=== PATIENT | male | born 1940 | race Caucasian/White ===

== ENCOUNTER → 2018-10-27 | Outpatient (CLI) | payer MEDICARE | END | disposition home or self-care (01) | LOC: PCVCCLINIC 10:18 | PROVIDERS: ATTEND Internal Medicine | DX: R93.1 Abnormal findings on diagnostic imaging of heart and coronary circulation (principal); I49.3 Ventricular premature depolarization; I10 Essential (primary) hypertension; E11.9 Type 2 diabetes mellitus without complications; I70.90 Unspecified atherosclerosis | CPT/HCPCS: 36415; 80061; 93005; G0463 ==

== ENCOUNTER → 2018-11-01 | Outpatient (CLI) | payer MEDICARE ==
--- NOTE | 2018-11-01 10:58 | PCVCIMAG ---
APPROVED REPORT Study performed: 11/01/2018 10:09:06 EXAM: Comprehensive 2D, Doppler, and color-flow Echocardiogram Patient Location: Echo lab Status: routine BSA: 1.98 HR: 60 bpmBP: 130/68 mmHg Rhythm: NSR Other Information Study Quality: Good Indications Diabetes Hypertension/HDD Elevated calcium score. PVC's 2D Dimensions IVSd: 8.83 (7-11mm)LVOT Diam: 20.92 (18-24mm) LVDd: 41.55 mm PWd: 9.36 (7-11mm)Ascending Ao: 34.61 (22-36mm) LVDs: 31.83 (25-40mm) Left Atrium: 40.65 (27-40mm) Aortic Root: 31.55 mm LV Single Plane 4CH: 58.15 % LV Single Plane 2CH: 69.33 % Biplane EF: 63.2 % Volumes Left Atrial Volume (Systole) Single Plane 4CH: 67.55 mLSingle Plane 2CH: 41.91 mL LA ESV Index: 32.00 mL/m2 Aortic Valve AoV Peak Maxx.: 1.41 m/s AO Peak Gr.: 7.90 mmHgLVOT Max P.33 mmHg LVOT Max V: 1.15 m/s JAZZ Vmax: 2.82 cm2 Mitral Valve E/A Ratio: 25.0 MV Decel. Time: 247.79 ms MV E Max Maxx.: 0.75 m/s MV A Maxx.: 0.03 m/s IVRT: 124.57 ms TDI E/Lateral E': 7.50E/Medial E': 12.50 Medial E' Maxx.: 0.06 m/s Lateral E' Maxx.: 0.10 m/s Pulmonary Vein P Vein S: 0.57 m/sP Vein A: 0.37 m/s P Vein D: 0.52 m/sP Vein A Dur.: 86.5 msec P Vein S/D Ratio: 1.10 Tricuspid Valve TR Peak Maxx.: 2.42 m/s TR Peak Gr.: 23.51 mmHg Left Ventricle The left ventricle is normal size. There is normal LV segmental wall motion. There is normal left ventricular wall thickness. Left ventricular systolic function is normal. The left ventricular ejection fraction is within the normal range. LVEF is 60-65%. The left ventricular diastolic function is normal. Right Ventricle The right ventricle is normal size. The right ventricular systolic function is normal. Atria The left atrium size is normal. The right atrium size is normal. Aortic Valve The aortic valve is normal in structure. No aortic regurgitation is present. There is no aortic valvular stenosis. Mitral Valve The mitral valve is normal in structure. Mild mitral regurgitation. No evidence of mitral valve stenosis. Tricuspid Valve The tricuspid valve is normal in structure. Trace tricuspid regurgitation. Pulmonary artery pressure is 30mmHg. Pulmonic Valve The pulmonary valve is normal in structure. There is no pulmonic valvular regurgitation. Great Vessels The aortic root is normal in size. IVC is normal in size and collapses >50% with inspiration. Pericardium There is no pericardial effusion. <Conclusion> The left ventricle is normal size. LVEF is 60-65%. The aortic valve is normal in structure. The mitral valve is normal in structure. Mild mitral regurgitation. The tricuspid valve is normal in structure. Trace tricuspid regurgitation. Pulmonary artery pressure is 30mmHg. The pulmonary valve is normal in structure. There is no pericardial effusion.
--- NOTE | 2018-11-01 12:16 | PCVCIMAG ---
APPROVED REPORT Indications Bruit Doppler Spectral Velocity Analysis PSV / EDVPSV / EDV ECA (R) 99 / 8 cm/sECA (L) 73 / 10 cm/s dICA (R) 78 / 22 cm/sdICA (L) 59 / 17 cm/s Conrad (R) 72 / 19 cm/smICA (L) 73 / 23 cm/s pICA (R) 86 / 16 cm/spICA (L) 70 / 19 cm/s Bulb (R) 68 / 16 cm/sBulb (L) 47 / 9 cm/s dCCA (R) 73 / 17 cm/sdCCA (L) 91 / 21 cm/s mCCA (R) 82 / 18 cm/smCCA (L) 90 / 19 cm/s Vert (R) 43 / 13 cm/sVert (L) 51 / 14 cm/s ICA/CCA 0.80 ICA/CCA 1.05 Basic Measurements Blood Pressure: Pulses: Right Left RightLeft Brachial(Sitting) 140/[id number]/80mmHgTemporal Real Time B-Mode Imaging Vert. (R)AntegradeVert. (L)Antegrade Findings The right carotid bulb has moderate calcified plaque. The right proximal internal carotid artery shows <40% stenosis. The right common carotid artery shows no significant stenosis. The right external carotid artery shows no significant stenosis. The left carotid bulb has mild calcified plaque. The left proximal internal carotid artery shows <40% stenosis. The left common carotid artery shows no significant stenosis. The left external carotid artery shows no significant stenosis. Conclusion 1. Right internal carotid artery stenosis (<40%) 2. Left internal carotid artery stenosis (<40%) 3. Antegrade vertebral flow
== END | disposition home or self-care (01) ==
LOC: PCVCIMAG 09:54
PROVIDERS: ATTEND Internal Medicine
DX: I65.23 Occlusion and stenosis of bilateral carotid arteries (principal); R09.89 Other specified symptoms and signs involving the circulatory and respiratory systems; I70.90 Unspecified atherosclerosis; E11.9 Type 2 diabetes mellitus without complications; I10 Essential (primary) hypertension; R93.1 Abnormal findings on diagnostic imaging of heart and coronary circulation; I49.3 Ventricular premature depolarization
CPT/HCPCS: 93306; 93880

== ENCOUNTER → 2018-11-21 | Outpatient (CLI) | payer MEDICARE ==
[~2018-11-21] MED LIST: REGADENOSON 0.4 MG/5 ML DISP.SYRIN. IV ONE
--- NOTE | 2018-11-21 11:51 | PCVCIMAG ---
APPROVED REPORT Imaging Protocol: Rest Tc-99m/Stress Tc-99m 1 day Study performed: 11/21/2018 09:12:09 Indication: Irregular Heart Beat Patient Location: Out-Patient Stress Nurse: Candice Tobias RN, Beulah Poon RN [facility] Tech:Amarilis Machadomaryam [facility] Ht: 5 ft 9 in Wt: 180 lbs BSA: 1.98 m2 HR: 73 bpm BP: 188/83 mmHg BMI: 26.57 Rhythm: Sinus Rhythm Medical History Medical History: Diabetes, High Ca Score Medications: Atenolol, Protonix, Zantac, Jardiance Allergies: No known drug allergies Cardiac Risk Factors: Age Pretest Chest Pain Characteristics: No chest pain Exercise History: Physically active Resting Data Rest SPECT myocardial perfusion imaging was performed in supine position 45 minutes following the intravenous injection of 10 mCi of Tc-99m Sestamibi. Time of rest injection: 0900 Date: 11/21/2018 Administration Route: IV Administration Site: Right AC Pharmacologic Stress Pharmacologic stress test was performed by injecting Regadenoson 0.4 mg IV push over 10-15 seconds immediately followed by the intravenous injection of 31.9 mCi of Tc-99m Sestamibi. Time of stress injection: 1010 Date: 11/21/2018 Administration Route: IV Administration Site: Right AC Gated Stress SPECT was performed 45 minutes after stress injection. The images were gated to evaluate regional wall motion and calculate left ventricular ejection fraction. Stress Test Details Stress Test: Pharmacologic stress was paired with low level exercise. Reason for pharmacologic stress test: Arrhythmias. HRMax Heart Rate (APMHR): 145 bpm Resting HR: 73 bpmTarget HR (85% APMHR): 123 bpm Max HR Achieved: 113 bpm % of APMHR: 77 Recovery HR: 85 bpm BP Resting BP: 188/83 mmHg Max BP: 142/80 mmHg Recovery BP: 152/59 mmHg ECG Resting ECG: Sinus Rhythm Stress ECG: Sinus Tachycardia Arrhythmia: PVC's Recovery ECG: Sinus Rhythm Clinical Reason for Termination: Completed protocol Stress Symptoms: Dyspnea, Leg Fatigue Exercise duration: 4 min 00 sec Exercise capacity: 1.6 METs Symptoms resolved with caffeine. Stress ECG Conclusion 1. Adequate response to intravenous Lexiscan 2. Inadequate heart rate for ECG diagnosis Study Data Post stress, the left ventricular ejection was 57%.. SSS: 3 SRS: 1 SDS: 3 TID = 0.78. Perfusion There is a large area of moderately reduced uptake in the entire segment of the inferior wall which is seen on the stress images as well as the resting images. This area thickens and moves normally and is most consistent with attenuation artifact. Nuclear Conclusion ECG Findings: non-diagnostic Clinical Findings: negative for ischemia Nuclear Findings: negative for ischemia Exercise Capacity: not assessed Left Ventricular Function: normal 1. Low risk study <Conclusion> 1. Adequate response to intravenous Lexiscan 2. Inadequate heart rate for ECG diagnosis
== END | disposition home or self-care (01) ==
LOC: PCVCIMAG 09:18
PROVIDERS: ATTEND Internal Medicine
DX: I49.9 Cardiac arrhythmia, unspecified (principal); I25.10 Atherosclerotic heart disease of native coronary artery without angina pectoris; I10 Essential (primary) hypertension; I49.3 Ventricular premature depolarization; E11.9 Type 2 diabetes mellitus without complications
CPT/HCPCS: 36415; 78452; 80061; 93005; 93017; 93283; A9500; G0463; J2785

== ENCOUNTER → 2019-05-23 | Outpatient (CLI) | payer MEDICARE | END | disposition home or self-care (01) | LOC: PCVCCLINIC 15:16 | PROVIDERS: ATTEND Internal Medicine | DX: I25.10 Atherosclerotic heart disease of native coronary artery without angina pectoris (principal); R94.31 Abnormal electrocardiogram [ECG] [EKG]; I10 Essential (primary) hypertension; E11.9 Type 2 diabetes mellitus without complications; E78.5 Hyperlipidemia, unspecified; Z79.84 Long term (current) use of oral hypoglycemic drugs; Z79.899 Other long term (current) drug therapy | CPT/HCPCS: 36415; 80061; 93005; G0463 ==